=== PATIENT | female | born 1945 | race Hispanic/Latino ===

== ENCOUNTER 2017-09-06 22:09 | Emergency (ER) | payer BC, OTHER ==
[~2017-09-06] VITALS: Ht 154.9 cm; Wt 78.9 kg
[~2017-09-06 22:09] MED LIST: GLYBURIDE5 MG PO; LANTUS100 UNITS/ INJ; LOPID600 MG PO; NEURONTIN100 MG PO; TYLENOL # 31 EA PO
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
[2017-09-07 01:13] VITALS: BP 137/79
== END 2017-09-07 01:25 | disposition home or self-care (01) ==
LOC: ER 22:09
DX: S60.221A Contusion of right hand, initial encounter (principal); S40.012A Contusion of left shoulder, initial encounter; S40.022A Contusion of left upper arm, initial encounter; S50.12XA Contusion of left forearm, initial encounter; S60.212A Contusion of left wrist, initial encounter; S60.222A Contusion of left hand, initial encounter; V43.52XA Car driver injured in collision with other type car in traffic accident, initial encounter; Y92.9 Unspecified place or not applicable; E11.9 Type 2 diabetes mellitus without complications; Z79.4 Long term (current) use of insulin
CPT/HCPCS: 71045; 72040; 99283